=== PATIENT | female | born 1975 | race Caucasian/White ===

== ENCOUNTER 2017-03-23 12:48 | Emergency (ER) | payer BC ==
[2017-03-23 13:02] VITALS: BP 129/80
--- NOTE | 2017-03-23 13:46 | EDM.PDOC ---
ED HPI GENERAL MEDICAL PROBLEM - General Chief Complaint: Genitourinary Problem Stated Complaint: UTI?? Time Seen by Provider: 03/23/17 13:35 Source of Information: Reports: Patient, Old Records, RN History Limitations: Reports: No Limitations - History of Present Illness INITIAL COMMENTS - FREE TEXT/NARRATIVE: 41 yo female presents with recent onset of dysuria. No fever, flank pain or nausea. 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) Pelvic Pain Score (Numeric/FACES): 4 - Related Data Allergies Allergy/AdvReac Type Severity Reaction Status Date / Time erythromycin base Allergy Hives Verified 03/12/16 05:00 [Erythromycin Base] Penicillins Allergy Hives Verified 03/12/16 05:00 Home Meds: Home Meds Albuterol Sulfate [Proair Hfa] 108 mcg INH Q4H PRN 12/31/13 [History] Levothyroxine Sodium [Levothyroxine Sodium] 125 mcg PO DAILY 12/31/13 [History] Prednisone [IMW: predniSONE] 20 mg PO WITHBREAKFAST 03/23/17 [History] Sulfamethoxazole/Trimethoprim [Bactrim Ds Tablet] 1 each PO Q12H #10 tablet 06/04 [Rx] Past Medical History - Past Health History Medical/Surgical History: Denies Medical/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 History 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: Endometrial Ablation, Endometriosis Other Dermatologic History: ezcema - Infectious Disease History Infectious Disease History: Reports: Chicken Pox - Past Surgical History Female Surgical History: Reports: Endometrial Ablation, Other (See Below) Social & Family History - Tobacco Use Smoking Status *Q: Never Smoker Second Hand Smoke Exposure: No - Caffeine Use Caffeine Use: Reports: None - Alcohol Use Days Per Week of Alcohol Use: 0 - Recreational Drug Use Recreational Drug Use: No ED ROS GENERAL - Review of Systems Review Of Systems: See Below Constitutional: Reports: No Symptoms GI/Abdominal: Denies: Nausea : Reports: Dysuria, Frequency, Urgency. Denies: Hematuria ED EXAM, RENAL/ - Physical Exam Exam: See Below Exam Limited By: No Limitations General Appearance: Alert, WD/WN, No Apparent Distress Back Exam: Normal Inspection. No: CVA Tenderness (R), CVA Tenderness (L) Neurological: Alert, Oriented, CN II-XII Intact, Normal Cognition, No Motor/ Sensory Deficits Psychiatric: Normal Affect, Normal Mood Skin Exam: Warm, Dry, Intact, Normal Color, No Rash Lymphatic: No Adenopathy Course - Vital Signs Last Recorded V/S: Last Vital Signs Temp 36.2 C 03/23/17 13:01 Pulse 65 03/23/17 13:01 Resp 16 03/23/17 13:01 BP 129/80 03/23/17 13:01 Pulse Ox 98 03/23/17 13:01 - Orders/Labs/Meds Orders: Active Orders 24 hr Category Date Time Status CULTURE URINE [RM] Stat Lab 03/23/17 13:17 Received Labs: Laboratory Tests 03/23/17 Range/Units 13:17 Urine Color Yellow Urine Appearance Cloudy Urine pH 5.0 (4.5-8.0) Ur Specific [place] 1.025 (1.008-1.030) Urine Protein 30 H (NEGATIVE) mg/dL Urine Glucose (UA) Normal (NEGATIVE) mg/dL Urine Ketones Negative (NEGATIVE) mg/dL Urine Occult Blood Moderate (NEGATIVE) Urine Nitrite Negative (NEGATIVE) Urine Bilirubin Negative (NEGATIVE) Urine Urobilinogen Normal (NORMAL) mg/dL Ur Leukocyte Esterase Large (NEGATIVE) Urine RBC 5-10 H (0-5) Urine WBC 40-50 H (0-5) Ur Epithelial Cells Many Amorphous Sediment Not seen Urine Bacteria Moderate Urine Mucus Moderate Departure - Departure Time of Disposition: 13:46 Disposition: Home, Self-Care 01 Condition: Good Clinical Impression: Acute cystitis Qualifiers: Hematuria presence: without hematuria Qualified Code(s): N30.00 - Acute cystitis without hematuria - Discharge Information Prescriptions: Sulfamethoxazole/Trimethoprim [Bactrim Ds Tablet] 1 each PO Q12H #10 tablet Referrals: Rachael Leach PA [Primary Care Provider] - Forms: ED Department Discharge Additional Instructions: Take Bactrim DS every 12 hrs until gone. Call Friday to your provider to discuss need for follow up or a change in antibiotic based on your urine culture results. Drink ample amts of fluids. Use AZO as needed for discomfort. - My Orders Last 24 Hours: My Active Orders 03/23/17 13:17 CULTURE URINE [RM] Stat - Assessment/Plan Last 24 Hours: My Active Orders 03/23/17 13:17 CULTURE URINE [] Stat
== END 2017-03-23 13:50 | disposition home or self-care (01) ==
LOC: JP.ED 12:48
DX: N30.00 Acute cystitis without hematuria (principal); Z79.899 Other long term (current) drug therapy; Z88.0 Allergy status to penicillin; Z88.1 Allergy status to other antibiotic agents
CPT/HCPCS: 81001; 87086; 99284

== ENCOUNTER 2018-05-22 09:52 | Emergency (ER) | payer BC ==
[2018-05-22 10:13] VITALS: BP 117/71
--- NOTE | 2018-05-22 10:29 | EDM.PDOC ---
ED HPI GENERAL MEDICAL PROBLEM - General Chief Complaint: Respiratory Problem Stated Complaint: SOB Time Seen by Provider: 05/22/18 10:26 Source of Information: Reports: Patient History Limitations: Reports: No Limitations - History of Present Illness INITIAL COMMENTS - FREE TEXT/NARRATIVE: pt has a history of irregular heart beat--palpitations related to throid disease. She i s feeling tightness in her chest. Onset: Gradual Duration: Day(s): Location: Reports: Chest Associated Symptoms: Reports: Other (pt is having chest tightness. 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, Endometriosis Other Dermatologic History: ezcema - Infectious Disease History Infectious Disease History: Reports: Chicken Pox - Past Surgical History Female Surgical History: Reports: Endometrial Ablation, Other (See Below) Social & Family History - Tobacco Use Smoking Status *Q: Never Smoker - Caffeine Use Caffeine Use: Reports: None ED ROS GENERAL - Review of Systems Review Of Systems: See Below Constitutional: Reports: No Symptoms HEENT: Reports: No Symptoms Respiratory: Reports: No Symptoms Cardiovascular: Reports: Other (pt is having chest tightness) Endocrine: Reports: No Symptoms GI/Abdominal: Reports: No Symptoms : Reports: No Symptoms Musculoskeletal: Reports: No Symptoms Skin: Reports: No Symptoms Neurological: Reports: No Symptoms ED EXAM, GENERAL - Physical Exam Exam: See Below Free Text/Narrative:: pt arrived with chest tightness. She has had an increase in her papitations. Exam Limited By: No Limitations General Appearance: Alert, Anxious Ears: Normal TMs Nose: Normal Inspection Throat/Mouth: Normal Inspection Head: Atraumatic Neck: Normal Inspection Respiratory/Chest: No Respiratory Distress Cardiovascular: Regular Rate, Rhythm GI/Abdominal: Soft, Non-Tender (Female) Exam: Deferred Rectal (Female) Exam: Deferred Back Exam: Normal Inspection Extremities: Normal Inspection Neurological: Alert, Oriented, Normal Cognition Psychiatric: Anxious Course - Vital Signs Last Recorded V/S: Last Vital Signs Temp 36.2 C 05/22/18 10:15 Pulse 88 05/22/18 10:15 Resp 13 05/22/18 10:15 BP 117/71 05/22/18 10:15 Pulse Ox 97 05/22/18 10:15 - Orders/Labs/Meds Labs: Laboratory Tests 05/22/18 05/22/18 Range/Units 10:55 10:55 Magnesium 1.8 (1.8-2.4) mg/dL Troponin I < 0.017 (0.000-0.056) ng/mL Free T4 1.20 (0.76-1.46) ng/dL Free T3 2.62 (2.18-3.98) pg/dL TSH, Ultra Sensitive 1.293 (0.358-3.740) uIU/mL - Re-Assessments/Exams Free Text/Narrative Re-Assessment/Exam: 05/22/18 11:50 pt had a normal ts, t4 and tsh. Her ekg did not show acute problems. Her trop, mag were normal. hER CHEST XRAY REVEALED NO ACUTE PROBLEMS. Departure - Departure Time of Disposition: 11:46 Disposition: Home, Self-Care 01 Condition: Fair Clinical Impression: Chest wall discomfort - Discharge Information Instructions: Chest Wall Pain, [id number] Referrals: Rachael Leach PA [Primary Care Provider] - Forms: ED Department Discharge Care Plan Goals: rtc if increased symptoms. If palpitations continue to be frequent pt may need a holter monitor. follow up with regular provider.
--- NOTE | 2018-05-22 10:51 | CRLCR ---
INDICATION: Shortness of breath. TECHNIQUE: Two views of the chest PA and lateral. COMPARISON: None. FINDINGS: The heart mediastinum are normal. Lungs are clear. No consolidations or pleural effusions are identified. Trachea is midline. No pneumothorax is identified. IMPRESSION: No evidence of acute disease. Dictated by London Grey MD @ May 22 2018 10:49AM Signed by Dr. London Grey @ May 22 2018 10:50AM
== END 2018-05-22 11:57 | disposition home or self-care (01) ==
LOC: JP.ED 09:52
DX: R07.89 Other chest pain (principal); Z79.899 Other long term (current) drug therapy; Z88.0 Allergy status to penicillin; Z88.1 Allergy status to other antibiotic agents
CPT/HCPCS: 36415; 71046; 83735; 84439; 84443; 84481; 84484; 93005; 99285-25

== ENCOUNTER 2023-05-08 06:08 | Day surgery (SDC) | payer BC, MEDICAID ==
[2023-05-08] MEDS: Sodium Chloride 0.9% 1,000 ML IV SCH (07:25)
[2023-05-08] MEDS ORDERED: Propofol 200 MG/20 ML SDV ONE (07:55)
[2023-05-08] MEDS ORDERED: fentaNYL 50 MCG/ML SDV ONE (07:55)
[2023-05-08] MEDS ORDERED: Ondansetron 4 MG/2 ML SDV ONE (07:59)
[2023-05-08] MEDS ORDERED: Dexamethasone 4 MG/ML SDV ONE (07:59)
[2023-05-08 09:06] VITALS: BP 122/70; PULSE 72
== END 2023-05-08 09:16 | disposition home or self-care (01) ==
LOC: JP.SDS 06:08
PROVIDERS: ATTEND Surgery
DX: K21.9 Gastro-esophageal reflux disease without esophagitis (principal); R10.13 Epigastric pain
CPT/HCPCS: 43239; 88305; J1100; J2405; J2704; J3010; J7030